=== PATIENT | female | born 2005 | race Caucasian/White ===

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

== ENCOUNTER 2025-05-10 04:38 | Emergency (ER) | payer SELFPAY ==
[2025-05-10 04:39] VITALS: BP 157/78; PULSE 108; RESP 16; TEMP 36.8; O2SAT 100; BMI 22.8
--- NOTE | 2025-05-10 05:09 | EX.ED.DYSGE1 ---
HPI History of Present Illness Chief Complaint: Abd Pain Narrative Narrative: Chief complaint and HPI: Right lower quadrant abdominal pain. 20-year-old female with past medical history of depression presents for evaluation of right lower quadrant abdominal pain. Patient states on Monday she developed pain in her back. States that it is progressively made its way to the right lower quadrant. She describes it as sharp. Worse with movement. No history of urolithiasis. Does not believe herself to be although she is sexually active without control. Her last menstrual cycle was the end of last month. Associated symptom is nausea. She denies any fever, chills, shortness of breath, chest pain, vomiting, diarrhea, constipation, dysuria. Review of systems: See HPI Medications: As listed on the chart Allergies: As listed on the chart PFSH: Per chart Vital signs: As listed on the chart. Reviewed. Physical exam: Gen: A&O x3, NAD Head: Normocephalic, atraumatic Eyes: No sclera icterus, conjunctiva clear ENT: Moist mucous membranes Neck: Trachea midline, No JVD CV: RRR, no murmurs, no peripheral edema Resp: Lungs CTA BL, no w/r/c GI: Abd soft, non-distended, mildly tender to palpation diffusely, no r/r/g : No CVA tenderness Musc: Full ROM, no deformity Skin: Warm, dry Neuro: Alert, oriented, grossly intact, sensation intact Psych: Cooperative, appropriate mood and affect [facility] Medical History Depression Home Medications ?Medication ?Instructions ?Recorded ?Last Taken ?Type bupropion HCl 150 mg tablet,12 hr 150 mg PO DAILY 11/22/24 Unknown History sustained-release Allergy/AdvReac Type Severity Reaction Status Date / Time diphenhydramine (From Allergy Severe Anaphylaxis Verified 10/27/23 00:19 Benadryl) Penicillins (PCN) Allergy Anaphylaxis Verified 10/27/23 00:18 Sulfa (Sulfonamide Allergy Anaphylaxis Verified 10/27/23 00:18 Antibiotics) Surgical History Hx of tonsillectomy Social History Smoking Status: Never smoker EXAM Physical Exam Const Vital Signs: 05/10/25 04:39 05/10/25 06:38 Temperature 98.2 F Temperature Source Oral Pulse Rate 108 H 86 Respiratory Rate 16 16 Blood Pressure 157/78 H 127/78 H Blood Pressure Mean 104 94 Pulse Ox 100 100 Oxygen Delivery Method Room Air Room Air MDM MDM MDM Narrative Medical decision making narrative: 20-year-old female with past medical history of depression presents for evaluation of right lower quadrant abdominal pain. Patient states on Monday she developed pain in her back. States that it is progressively made its way to the right lower quadrant. She describes it as sharp. Worse with movement. Differential diagnosis includes but is not limited to appendicitis, urolithiasis, UTI, , pancreatitis, viral illness, gastroenteritis. NS bolus, morphine, Zofran ordered for symptoms. Abdominal pain workup ordered including CT abdomen pelvis. CBC without leukocytosis or anemia. CMP relatively unremarkable. Lipase unremarkable. Serum negative. UA negative for UTI. CT abdomen pelvis pending at this time. Patient signed out to oncoming provider, Dr. Mcnulty. He will wait for CT abdomen pelvis results. Impression: 1. Right-sided abdominal pain 2. Nausea Lab Data Labs: Laboratory Results - last 24 hr 05/10/25 05/10/25 04:51 05:45 WBC 9.8 RBC 3.79 L Hgb 12.0 Hct 34.5 L MCV 91.0 MCH 31.7 MCHC 34.8 RDW Std Deviation 39.0 RDW Coeff of [place] 11.9 Plt Count 267 MPV 8.7 Immature Gran % (Auto) 0.200 Neut % (Auto) 57.4 Lymph % (Auto) 31.0 [place] % (Auto) 8.7 Eos % (Auto) 2.1 Baso % (Auto) 0.6 Absolute Neuts (auto) 5.6 Absolute Lymphs (auto) 3.04 Nucleated RBC % 0 Sodium 138 Potassium 3.6 Chloride 106 Carbon Dioxide 20.9 L Anion Gap 11 BUN 10 Creatinine 0.77 Estim Creat Clear Calc 113.33 Est GFR (MDRD) Non-Af 114 BUN/Creatinine Ratio 13.2 Glucose 99 Calcium 9.2 Total Bilirubin 0.21 AST 17 ALT 18 Alkaline Phosphatase 70 Total Protein 6.6 Albumin 4.1 Globulin 2.4 Albumin/Globulin Ratio 1.7 Lipase 33 Serum , Qual NEGATIVE Urine Color Yellow Urine Clarity Clear Urine pH 7.0 Ur Specific [place] 1.010 Urine Protein 15 H Urine Glucose (UA) Normal Urine Ketones Negative Urine Occult Blood 25 H Urine Nitrite Negative Urine Bilirubin Negative Urine Urobilinogen Normal Ur Leukocyte Esterase Negative Urine RBC 0 SEEN Urine WBC 0-5 SEEN Ur Squamous Epith Cells 5-10 SEEN Urine Bacteria 0 SEEN Urine Mucus 0 SEEN Discharge Plan Triage Chief Complaint: Abd Pain ED Provider: Gunnar Santana Dx/Rx/DC Orders Clinical Impression: Abdominal pain Instructions: ED Abdominal Pain Unkn Cause Fem Prescriptions: No Action bupropion HCl 150 mg tablet sustained-release 12 hr 150 mg PO DAILY Primary Care Provider: Millie Grimes NP Referrals: Millie Grimes NP, [employer] [facility] [Primary Care Provider] - 3-5 Days Activity Restrictions/Additional Instructions: Return back to ED if symptoms change or worsen. Follow-up with your primary care physician. Print Language: French Disposition Disposition: Home, Self Care
[2025-05-10 05:17] LABS: Hematocrit 34.5 % (37-47); Hemoglobin 12.0 g/dL (12.0-15.0); Immature Granulocytes Count 0.020 X10^3/uL (0.0-0.0); Mean Corp Hgb Conc 34.8 g/dL (32-36); Mean Corpuscular Volume 91.0 fL (81-99); Mean Platelet Vol. 8.7 fl (6.2-12.0); NRBC Flagged by Analyzer 0 % (0-5); Platelet Count 267 K/mm3 (150-450); RBC Distribution Width CV 11.9 % (11.6-14.6); RBC Distribution Width SD 39.0 fl (35.1-43.9); Red Blood Count 3.79 M/mm3 (4.2-5.4); White Blood Count 9.8 K/mm3 (4.4-11.0)
[2025-05-10 05:28] LABS: Internal QC Validated? YES +Cl - CLEAR BKGD; Pregnancy, Serum, hCG Quali. NEGATIVE Negative; Record Kit Lot#, Serum Preg. 0000962302
[2025-05-10 05:35] LABS: AST(SGOT) 17 U/L (<=31); Alanine Aminotransfer ALT/SGPT 18 U/L (<=34); Albumin, Serum 4.1 g/dL (3.5-5.0); Alkaline Phosphatase 70 U/L (35-104); Anion Gap 11 (5-15); BUN 10 mg/dL (4-19); BUN/Creat Ratio 13.2 RATIO (10-20); Calcium,Total 9.2 mg/dL (7.6-11.0); Carbon Dioxide 20.9 mmol/L (21.0-32.0); Chloride 106 mmol/L (98-108); Estimated Creatinine Clearance 113.33 ml/min (50-250); Globulin 2.4 g/dL (2.2-4.2); Glucose 99 mg/dL (70-99); Lipase 33 U/L (13-75); Potassium 3.6 mmol/L (3.3-5.1)
[2025-05-10] MEDS: 0.9% Normal Saline (1000mL) 1,000 ML 999 ML IV (05:35)
--- OUTSIDE RECORDS SUMMARY | 2025-05-10 05:43 | XMS RPT_ITS | CCD ---
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 CLINICAL RECORDS. [facility] [employer] [facility]. provides no warranty or guarantee of the accuracy or completeness of information in this document.
--- NOTE | 2025-05-10 05:51 | CT_ITS ---
PROCEDURE: ABDOMEN/PELVIS W IV CONT ONLY 05/10/2025 REASON FOR EXAM: ABDOMINAL PAIN Back pain which started on Monday and progressed to the right side. Abdomen pain. Nausea. Negative test. TECHNIQUE: ABDOMEN/PELVIS W IV CONT ONLY Coronal and Sagittal reconstruction series were provided. CONTRAST: Isovue 370 VOLUME: 75 mL One or more dose reduction techniques were used (e.g., Automated exposure control, adjustment of the mA and/or kV according to patient size, use of iterative reconstruction technique. RADIATION DOSE SUMMARY: CTDlvol: 22.5 mGy DLP: 488.3 mGycm COMPARISON: CT abdomen and pelvis study dated 10/27/1999 FINDINGS: Lung bases: Unremarkable. There is no atelectasis, consolidation, effusion or pneumonic infiltrate. Liver: Normal size. Unremarkable. No intrahepatic masses or intrahepatic biliary ductal dilatation is seen. Gallbladder: Unremarkable. No stones are seen. Contour and echogenicity appear to be within normal limits. Gallbladder wall does not appear to be edematous. Spleen: Unremarkable. Normal size, contour, and attenuation. No focal cystic or solid masses are seen. Pancreas: Unremarkable. No focal cystic or solid masses are seen. Adrenals: Unremarkable. No nodules. Kidneys: Unremarkable. Size, contour, and attenuation are within normal limits. There are no stones, masses or hydronephrosis involving either kidney. Normal enhancement of the renal parenchyma bilaterally. Bladder: Unremarkable. Reproductive Organs: Unremarkable as visualized. Bowel: No evidence of ileus or bowel obstruction. A moderate amount of stool and gas is present throughout the colon. Appendix: Appears normal. Lymph nodes: Unremarkable. No enlarged lymph nodes. Vasculature: Unremarkable. Abdominal aorta is nonaneurysmal. Peritoneum / Retroperitoneum: Unremarkable. There is no ascites. Bones: Unremarkable. No suspicious lytic or blastic abnormality. CT/Abdomen/Pelvis W IV Cont ONLY IMPRESSION: Unremarkable CT abdomen and pelvic exam. No acute findings are noted. Reading Location: [id number]
[2025-05-10 05:52] LABS: Mucous, Urine 0 SEEN /hpf (<or=2+); Red Blood Cells-Urine 0 SEEN /hpf (0-5)
[2025-05-10 05:53] LABS: Glucose, Dipstick Normal (Normal); Ketone-Dipstick Negative (Negative); Leukocyte Esterase-Dipstick Negative /ul (Negative); Nitrite-Dipstick Negative (Negative); Occult Blood-Urine 25 /ul (Negative); Protein-Dipstick 15 mg/dl (Negative); Specific Gravity, Urine 1.010 (1.002-1.030); Urine Bilirubin Dipstick Negative (Negative)
[2025-05-10 06:38] VITALS: BP 127/78; PULSE 86; RESP 16; O2SAT 100
[2025-05-10 06:59] LABS: Color, Urine Yellow (Yellow); Squamous Epithelial Cells - UA 5-10 SEEN /hpf (5-10)
[2025-05-10 08:24] VITALS: BP 112/74; PULSE 69; RESP 17; TEMP 36; O2SAT 100
== END 2025-05-10 08:25 | disposition home or self-care (01) ==
PROVIDERS: Emergency Provider Surgery; PCP Registered Nurse; Visit Provider Surgery
DX: R10.31 Right lower quadrant pain (principal); R11.0 Nausea; F32.A Depression, unspecified; Z79.899 Other long term (current) drug therapy
CPT/HCPCS: 74177; 80053; 81001; 83690; 84703; 85025; 96361; 96374; 96375; 99283; Q9967; A4216; J2405